=== PATIENT | female | born 1980 | race Caucasian/White ===

== ENCOUNTER 2017-08-16 23:12 | Inpatient (IN) | payer BC ==
[2017-08-17] MEDS ORDERED: Oxytocin in LR* 20 UNITS/1,000 ML BAG IVPB ONE (08:35)
[2017-08-17] MEDS ORDERED: OXYTOCIN* 10 UNITS/ML 1 ML VIAL ONE (09:11)
[2017-08-17] MEDS ORDERED: Methylergonovine INJ* 0.2 MG/ML 1ML AMP ONE (09:15)
[2017-08-17] MEDS ORDERED: Acetaminophen TAB* 325 MG PO PRN (09:18)
[2017-08-17] MEDS ORDERED: Methylergonovine INJ* 0.2 MG/ML 1ML AMP IM ONE (09:18)
[2017-08-17] MEDS ORDERED: OXYTOCIN* 10 UNITS/ML 1 ML VIAL IM ONE (09:18)
[2017-08-17] MEDS ORDERED: Ibuprofen TAB* 600 MG ONE (09:25)
[2017-08-17] MEDS ORDERED: Dibucaine 1% 28.35 GM TUBE ONE (09:26)
[2017-08-17] MEDS ORDERED: Witch Hazel PAD* JAR ONE (09:26)
[2017-08-17] MEDS: Witch Hazel PAD* JAR TOPICAL PRN (09:38)
[2017-08-17] MEDS: Dibucaine 1% 28.35 GM TUBE PR PRN (09:38)
[2017-08-17] MEDS: Ibuprofen TAB* 600 MG PO PRN ×2 (09:39→16:58)
[2017-08-17] MEDS ORDERED: Oxytocin in LR* 20 UNITS/1,000 ML BAG IVPB SCH (10:00)
[2017-08-17] MEDS ORDERED: Simethicone TAB* 80 MG TAB.CHEW PO SCH (12:30)
[2017-08-17] MEDS: Docusate CAP* 100 MG PO SCH ×2 (16:58→20:59)
[2017-08-18] MEDS: Ibuprofen TAB* 600 MG PO PRN ×2 (05:09→10:48)
[2017-08-18 06:53] LABS: ABS Basophils 0.1 10^3/ul (0-0.2); ABS Eosinophils 0 10^3/ul (0-0.6); ABS Lymphocytes 2.3 10^3/ul (1.0-4.8); ABS Monocytes 0.8 10^3/ul (0-0.8); ABS Neutrophils 9.8 10^3/ul (1.5-7.7); ABS Nucleated RBC 0 10^3/ul; Eosinophil % 0.4 % (0-6); Hematocrit 32 % (35-47); Hemoglobin 11.3 g/dl (12.0-16.0); Lymphocyte % 17.4 % (25-47); Mean Corpuscular HGB Conc 35 g/dl (31-36); Mean Corpuscular Hemoglobin 32 pg (27-31); Mean Corpuscular Volume 93 fL (80-97); Mean Platelet Volume 9 um3 (7.4-10.4); Nucleated Red Blood Cells % 0; Platelet Count 155 10^3/ul (150-450); Red Cell Distribution Width 13 % (10.5-15)
[2017-08-18] MEDS: Docusate CAP* 100 MG PO SCH (08:20)
[2017-08-18 08:22] VITALS: BP 112/68
[2017-08-18] MEDS ORDERED: Ferrous Gluconate TAB* 324 MG TAB PO SCH (09:00)
[2017-08-18] MEDS: Witch Hazel PAD* JAR TOPICAL PRN (14:28)
[2017-08-18] MEDS: Dibucaine 1% 28.35 GM TUBE PR PRN (14:28)
== END 2017-08-18 14:55 | disposition home or self-care (01) | DRG 560 ==
LOC: MCHOBOUT 23:12 → MCHOB 23:37
PROVIDERS: ADMIT Obstetrics & Gynecology; ATTEND Obstetrics & Gynecology
PROC: 10D07Z6 Extraction of Products of Conception, Vacuum, Via Natural or Artificial Opening (ICD-10-PCS; principal; 2017-08-17)
PROC: 0KQM0ZZ Repair Perineum Muscle, Open Approach (ICD-10-PCS; 2017-08-17)
DX: O48.0 Post-term pregnancy (principal); O71.4 Obstetric high vaginal laceration alone; O69.81X0 Labor and delivery complicated by cord around neck, without compression, not applicable or unspecified; Z3A.40 40 weeks gestation of pregnancy; Z37.0 Single live birth
CPT/HCPCS: 36415; 85025; A9270-GY; J2210; J2590

== ENCOUNTER 2019-04-28 14:47 | Inpatient (IN) | payer BC ==
[2019-04-28] MEDS ORDERED: Lidocaine 1% INJ* 10 MG/ML 30 ML SDV ONE (14:49)
[2019-04-28] MEDS ORDERED: Glycerin ADULT SUPP PR PRN (15:24)
[2019-04-28] MEDS ORDERED: Acetaminophen TAB* 325 MG PO PRN (15:24)
[2019-04-28] MEDS ORDERED: OXYTOCIN* 10 UNITS/ML 1 ML VIAL IM ONE (15:24)
[2019-04-28] MEDS ORDERED: Ibuprofen TAB* 600 MG PO PRN (15:24)
[2019-04-28] MEDS ORDERED: Lactated Ringers 1000 ML Bag* 1,000 ML IV SCH (16:00)
[2019-04-28] MEDS: Dibucaine 1% 28.35 GM TUBE PR PRN (16:32)
[2019-04-28] MEDS: Witch Hazel PAD* JAR TOPICAL PRN (16:32)
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
[2019-04-28] MEDS: Docusate CAP* 100 MG PO SCH (21:19)
[2019-04-29 06:28] LABS: ABS Basophils 0.1 10^3/ul (0-0.2); ABS Eosinophils 0.1 10^3/ul (0-0.6); ABS Lymphocytes 1.5 10^3/ul (1.0-4.8); ABS Monocytes 0.8 10^3/ul (0-0.8); ABS Neutrophils 6.8 10^3/ul (1.5-7.7); Eosinophil % 0.6 %; Hematocrit 38 % (35-47); Hemoglobin 13.4 g/dL (12.0-16.0); Lymphocyte % 16.2 %; Mean Corpuscular HGB Conc 35 g/dL (31-36); Mean Corpuscular Hemoglobin 32 pg (27-31); Mean Corpuscular Volume 91 fL (80-97); Mean Platelet Volume 8.6 fL (7.4-10.4); Nucleated Red Blood Cells % 0.2; Platelet Count 186 10^3/uL (150-450); Red Blood Count 4.24 10^6 /uL (3.70-4.87); Red Cell Distribution Width 13 % (10-15); White Blood Count 9.2 10^3/uL (3.5-10.8)
[2019-04-29 07:05] LABS: Urine Benzodiazepine Screen None Detected (None Detect); Urine Opiates Screen None Detected (None Detect)
[2019-04-29] MEDS: Dibucaine 1% 28.35 GM TUBE PR PRN (08:23)
[2019-04-29] MEDS: Witch Hazel PAD* JAR TOPICAL PRN (08:23)
[2019-04-29] MEDS: Docusate CAP* 100 MG PO SCH ×2 (08:23→14:02)
[2019-04-29] MEDS ORDERED: Ferrous Gluconate TAB* 324 MG TAB PO SCH (09:00)
[2019-04-29 15:33] VITALS: BP 112/65
== END 2019-04-29 16:35 | disposition home or self-care (01) | DRG 560 ==
LOC: MCHOBOUT 14:47 → MCHOB 14:48
PROVIDERS: ADMIT Obstetrics & Gynecology; ATTEND Midwife
PROC: 10E0XZZ Delivery of Products of Conception, External Approach (ICD-10-PCS; principal; 2019-04-28)
PROC: 0KQM0ZZ Repair Perineum Muscle, Open Approach (ICD-10-PCS; 2019-04-28)
DX: O48.0 Post-term pregnancy (principal); O62.3 Precipitate labor; O70.1 Second degree perineal laceration during delivery; Z3A.40 40 weeks gestation of pregnancy
CPT/HCPCS: 36415; 80307; 85025; A9270-GY; J2590